=== PATIENT | female | born 1955 | race Caucasian/White ===

== ENCOUNTER 2016-09-22 02:08 | Emergency (ER) | payer OTHER ==
[~2016-09-22 02:08] MED LIST: ADVAIR 2501 DISK W/D; ALBUTEROL17 GM; DYAZIDE 37.5/251 CAP; FLEXERIL PO; INTERFERON; REBETOL200 MG; TRAZODONE; VICODIN PO
== END 2016-09-22 02:30 | disposition home or self-care (01) ==
LOC: CED 02:08
DX: M54.9 Dorsalgia, unspecified (principal); G89.29 Other chronic pain; I10 Essential (primary) hypertension; J44.9 Chronic obstructive pulmonary disease, unspecified; F17.210 Nicotine dependence, cigarettes, uncomplicated; Z88.2 Allergy status to sulfonamides; Z88.5 Allergy status to narcotic agent; Z88.8 Allergy status to other drugs, medicaments and biological substances
CPT/HCPCS: 99283

== ENCOUNTER 2016-10-26 23:59 | Emergency (ER) | payer OTHER ==
--- NOTE | ~2016-10-26 | EKG ---
PATIENT: YU DURAN UNIT #: [id number] Ventricular Rate: 82 BPM Atrial Rate: 82 BPM P-R Interval: 154 ms QRS Duration: 74 ms Q-T Interval: 370 ms QTC Calculation(Bezet): 432 ms Calculated R [place]: 97 degrees Calculated T [place]: 139 degrees Diagnosis Line: Normal sinus rhythm Diagnosis Line: Rightward axis Diagnosis Line: Septal infarct , age undetermined Diagnosis Line: Cannot rule out Inferior infarct , age Diagnosis Line: undetermined Diagnosis Line: Abnormal ECG Diagnosis Line: No previous ECGs available Diagnosis Line: Confirmed by ROSALINDA VELAZCO MD ([id number]) on Diagnosis Line: 10/27/2016 4:36:58 PM INTERPRETING MD: MORA DEAN
--- NOTE | ~2016-10-26 | CT16 ---
[facility] A Service of [facility] RADIOLOGY TEXT RESULTS PATIENT: YU DURAN LOCATION: [facility] : 57 UNIT #: [id number] AGE: [address]: Rosa Bonilla MD SEX: F ORDER DR: [id number] [facility] [address] [place], [place] [address] [id number] E MR#: [id number] [facility] #: [id number] NAME: YU DURAN : 1955 SEX: F STUDY DATE/TIME: 10/27/2016 2:45 UNIT: [facility] ROOM: STUDY DESCRIPTION: CT Angio Chest for PE Attending Physician: Rosa Bonilla M.D. Ordering Physician: Rosa Bonilla M.D. Primary Care Physician: [facility], [facility]. MEDICAL IMAGING REPORT This report is preliminary unless electronic signature is present EXAM CTA chest with contrast, PE protocol DATE 10/27/2016 HISTORY Elevated D-dimer, left back pain, shortness of breath and cough. Pain with deep breathing. COMPARISON CT chest 11/25/2016. AP chest radiograph 10/27/2016. PROCEDURE 2 mm axial images through the chest after IV contrast administration. 3-D coronal MIP reformatted images were obtained. This CT exam was performed with one or more of the following radiation dose reduction techniques: Automatic exposure control, adjustment of mA and/or kV according to patient size, and iterative reconstruction. FINDINGS No pulmonary embolism, aortic aneurysm or aortic dissection is seen. Mild centrilobular emphysematous changes are present. Benign calcified granulomatous change is present within the right hilum. Calcified granuloma is present within the right lower lobe. Peripherally calcified bilateral breast implants are noted. No pericardial effusion or pleural effusion. Cholecystectomy changes. Uncomplicated colonic diverticulosis. Noncalcified nodules within the left lower lobe, 4 mm and 7 mm (series 6, image 97 and 91) and 5 mm noncalcified nodule in the right upper lobe (image 53). IMPRESSION [facility] A Service of [facility] RADIOLOGY TEXT RESULTS PATIENT: [facility]U DURAN [id number] 57 UNIT #: [id number] AGE: [address]: Rosa Bonilla MD SEX: F ORDER DR: 1. No pulmonary embolism. No thoracic aortic aneurysm or aortic dissection. 2. Emphysema. 3. Noncalcified nodules in the right upper lobe and left lower lobe. 6-month CT chest followup recommended. Alternatively, correlation with outside CT chest recommended. 4. Cholecystectomy. 5. Uncomplicated colonic diverticulosis. 6. Calcified granulomatous changes of the chest. 7. Bilateral breast augmentation. Dictated by... Laurie Steele M.D. THIS IS AN ELECTRONICALLY VERIFIED REPORT Laurie Steele M.D. at 10/27/2016 9:58 PM [facility]/geovani TD: 10/27/2016 04:01 JOB #: [id number] MEDICAL IMAGING REPORT Page 1 of 1 COPY
--- NOTE | ~2016-10-26 | CR72 ---
[facility] A Service of [facility] RADIOLOGY TEXT RESULTS PATIENT: YU DURAN LOCATION: [facility] : 57 UNIT #: [id number] AGE: [address]: Rosa Bonilla MD SEX: F ORDER DR: [id number] [facility] [address] [place], [place] [address] [id number] E MR#: [id number] Acc #: [id number] NAME: YU DURAN : 1955 SEX: F STUDY DATE/TIME: 10/27/2016 0:11 UNIT: [facility] ROOM: STUDY DESCRIPTION: CR Chest Single View Portable Attending Physician: Michael King M.D. Ordering Physician: Michael King M.D. Primary Care Physician: [facility], [facility]. MEDICAL IMAGING REPORT This report is preliminary unless electronic signature is present EXAM AP portable chest DATE 10/27/2016 at 00:11 HISTORY 61-year-old female with shortness of breath and cough since 10/21/2016, getting worse. Patient is on antibiotics for "left lung infection." Previous smoking history. COMPARISON AP portable chest 06/01/2016. FINDINGS Lungs are mildly hyperinflated and may be emphysematous. No acute airspace disease is seen. Bilateral breast implants are incidentally noted with partial capsular calcification. There are surgical changes within the cervical spine. Benign calcified granuloma is thought to be present in the medial right lung base, unchanged from prior. IMPRESSION 1. Pulmonary hyperinflation suggesting emphysematous change. No acute chest findings or significant change compared to 06/01/2016. Dictated by... Laurie Steele M.D. THIS IS AN ELECTRONICALLY VERIFIED REPORT Laurie Steele M.D. at 10/27/2016 9:[address] [facility] A Service of [facility] RADIOLOGY TEXT RESULTS PATIENT: YU DURAN LOCATION: [place] : 57 UNIT #: [id number] AGE: [address]: Rosa Bonilla MD SEX: F ORDER DR: TD: 10/27/2016 01:36 JOB #: [id number] MEDICAL IMAGING REPORT Page 1 of 1 COPY
[2016-10-27 01:26] LABS: BASOPHIL# 0.1 X10e3 (0-0.3); BASOPHIL% 0.9 % (0-2.5); EOSINOPHIL# 0.2 X10e3 (0-0.7); EOSINOPHIL% 1.9 % (0.0-7.0); HEMOGLOBIN 14.3 gm/dL (12.0-16.0); LYMPHOCYTE# 2.8 X10e3 (1.0-3.5); LYMPHOCYTE% 29.8 % (17.0-45.0); MEAN CELL VOLUME 94.2 FL (83-96); MEAN CORPUSCULAR HEMOGLOBIN 31.4 PG (28-34); MEAN CORPUSCULAR HGB CONC 33.4 g/dL (30-36); MEAN PLATELET VOLUME 8.4 FL (6.5-11.5); MONOCYTE# 0.6 X10e3 (0-1.0); MONOCYTE% 6.6 % (3.0-12.0); NEUTROPHIL# 5.7 X10e3 (1.5-7.1); NEUTROPHIL% 60.8 % (40-75); PLATELET COUNT 259 X10e3 (140-420); RED BLOOD COUNT 4.56 X10e (3.90-5.30); RED CELL DISTRIBUTION WIDTH 13.7 % (11.0-15.5); WHITE BLOOD COUNT 9.4 X10e3 (4.0-10.5)
[2016-10-27 01:30] LABS: DIFF IND NO
[2016-10-27 01:46] LABS: ALBUMIN SERUM 4.4 g/dL (3.5-5.0); BILIRUBIN, DIRECT 0.1 mg/dL (0.0-0.2); BILIRUBIN,INDIRECT 0.2 mg/dL (0.0-0.9); BILIRUBIN,TOTAL 0.3 mg/dL (0.2-2.0); BUN/CREATININE RATIO 16.25; CREATININE SERUM 0.8 mg/dL (0.6-1.4); GLOM FILT RATE Estimated 80.2 mL/min (>60); POTASSIUM 3.2 mmol/L (3.5-5.1); PROTEIN TOTAL SERUM 7.6 g/dL (6.0-8.3)
[2016-10-27 01:48] LABS: INR 0.9; PARTIAL THROMBOPLASTIN TIME 26.9 SECONDS (23.5-31.3); PROTHROMBIN TIME (PATIENT) 9.5 SECONDS (9.6-11.5)
[2016-10-27 02:07] LABS: POC - CKMB 1.6 ng/mL (0.0-7.9); POC - TROPONIN <0.05 ng/mL (<=0.05)
== END 2016-10-27 03:44 | disposition home or self-care (01) ==
LOC: CED 23:59
PROVIDERS: Emergency Medicine
DX: J44.1 Chronic obstructive pulmonary disease with (acute) exacerbation (principal); R91.1 Solitary pulmonary nodule; J45.909 Unspecified asthma, uncomplicated; I10 Essential (primary) hypertension; F17.210 Nicotine dependence, cigarettes, uncomplicated; Z86.19 Personal history of other infectious and parasitic diseases; Z90.49 Acquired absence of other specified parts of digestive tract; Z90.710 Acquired absence of both cervix and uterus; Z98.51 Tubal ligation status; Z98.890 Other specified postprocedural states; Z88.2 Allergy status to sulfonamides; Z88.5 Allergy status to narcotic agent; Z88.8 Allergy status to other drugs, medicaments and biological substances; Z79.899 Other long term (current) drug therapy
CPT/HCPCS: 36415; 71010; 71275; 80048; 80076; 82553; 84484; 85025; 85379; 85610; 85730; 87040; 93005; 94640; 96374; 99284; J2930; Q9967

== ENCOUNTER 2017-03-10 02:00 | Emergency (ER) | payer OTHER ==
[~2017-03-10] VITALS: Ht 149.9 cm; Wt 70.8 kg
--- NOTE | ~2017-03-10 | CR63 ---
[facility] A Service of [facility] RADIOLOGY TEXT RESULTS PATIENT: YU DURAN LOCATION: [facility] : 57 UNIT #: [id number] AGE: [address]: MC CARSON APRN SEX: F ORDER DR: [id number] [facility] [address] [place], [place] [address] [id number] E MR#: [id number] Acc #: [id number] NAME: YU DURAN : 1955 SEX: F STUDY DATE/TIME: 03/10/2017 UNIT: [facility] ROOM: STUDY DESCRIPTION: CR Chest 2 View Attending Physician: Mc Carson Aprn Ordering Physician: Mc Carson Aprn Primary Care Physician: [facility]AG[facility] REPORT This report is preliminary unless electronic signature is present EXAM Chest x-ray 03/10/2017 at 03:02. INDICATIONS Chest pain, epigastric pain, and shortness of air for 2 days. History of COPD. COMPARISON 2 views of the chest compared with 10/27/2016. FINDINGS Cardiac and mediastinal contours are within normal limits. Lungs are emphysematous, but clear. No pneumothorax. Patient is status post cervical fusion. Calcified breast implants are present. IMPRESSION Emphysema. No active disease. Dictated by... Gabriel Toussaint Jr., M.D. THIS IS AN ELECTRONICALLY VERIFIED REPORT Gabriel Toussaint Jr., M.D. at 03/10/2017 8:34 PM [facility]/sonia TD: 03/10/2017 12:37 JOB #: [id number] MEDICAL IMAGING REPORT Page 1 of 1 COPY
[2017-03-10 03:30] LABS: BASOPHIL# 0.1 X10e3 (0-0.3); BASOPHIL% 1.3 % (0-2.5); EOSINOPHIL# 0.2 X10e3 (0-0.7); EOSINOPHIL% 2.2 % (0.0-7.0); HEMATOCRIT 44.2 % (35.0-45.0); LYMPHOCYTE# 2.5 X10e3 (1.0-3.5); LYMPHOCYTE% 36.2 % (17.0-45.0); MEAN CELL VOLUME 95.4 FL (83-96); MEAN CORPUSCULAR HEMOGLOBIN 32.3 PG (28-34); MEAN CORPUSCULAR HGB CONC 33.9 g/dL (30-36); MEAN PLATELET VOLUME 8.5 FL (6.5-11.5); MONOCYTE# 0.5 X10e3 (0-1.0); MONOCYTE% 7.3 % (3.0-12.0); NEUTROPHIL# 3.6 X10e3 (1.5-7.1); PLATELET COUNT 258 X10e3 (140-420); RED BLOOD COUNT 4.64 X10e (3.90-5.30); WHITE BLOOD COUNT 6.9 X10e3 (4.0-10.5)
[2017-03-10 03:31] LABS: DIFF IND NO
[2017-03-10 04:00] LABS: ALBUMIN SERUM 4.6 g/dL (3.5-5.0); BILIRUBIN,TOTAL 0.3 mg/dL (0.2-2.0); BUN/CREATININE RATIO 15.55; CALCIUM SERUM 9.6 mg/dL (8.4-10.2); CREATININE SERUM 0.9 mg/dL (0.6-1.4); GLOM FILT RATE Estimated 69.5 mL/min (>60); PROTEIN TOTAL SERUM 8.1 g/dL (6.0-8.3)
[2017-03-10 04:03] LABS: BILIRUBIN, DIRECT 0.1 mg/dL (0.0-0.2); BILIRUBIN,INDIRECT 0.2 mg/dL (0.0-0.9)
== END 2017-03-10 04:31 | disposition home or self-care (01) ==
LOC: CED 02:00
PROVIDERS: Nurse Practitioner Family
DX: M94.0 Chondrocostal junction syndrome [Tietze] (principal); J44.9 Chronic obstructive pulmonary disease, unspecified; Z86.19 Personal history of other infectious and parasitic diseases; Z90.49 Acquired absence of other specified parts of digestive tract; Z90.710 Acquired absence of both cervix and uterus; Z88.5 Allergy status to narcotic agent; F17.210 Nicotine dependence, cigarettes, uncomplicated
CPT/HCPCS: 36415; 71020; 80048; 80076; 82150; 83690; 85025; 99285